=== PATIENT | female | born 1950 | race Two or more races ===

== ENCOUNTER 2020-07-08 11:18 | Emergency (ER) | payer MEDICARE, MEDICAID ==
[~2020-07-08] VITALS: Ht 157.5 cm; Wt 75.0 kg
--- NOTE | 2020-07-08 11:32 | NUR ---
PATIENT BIB [facility] WITH CHIEF COMPLAINT OF DIFFICULTY BREATHING X2 DAYS. PATIENT HAS HAD RESPIRATORY SYMPTOMS FOR 2 WEEKS, INCLUDING PRODUCTIVE COUGH. PATIENT WAS SEEN AT URGENT CARE TODAY WHERE SHE WAS FOUND TO BE 68% ON RA, EN ROUTE [facility] PLACED PATIENT ONF 15 LITERS NON REBREATHER AND PATIENTS O2 SATURATION WENT UP TO 93%. PATIENT IS A&OX4, NO APPARENT SIGNS OF DISTRESS, O2 SATURATION IS 93% ON 15 LITERS NON REBREATHER. ERMD AT BEDSIDE FOR EVALUATION.
--- NOTE | 2020-07-08 12:19 | NUR ---
[employer] LABORER AT BEDSIDE.
[2020-07-08 12:25] LABS: BASOPHILS # (AUTO) 0.01 x10^3/uL (0-0.1); BASOPHILS % (AUTO) 0 % (0-1); EOSINOPHILS % (AUTO) 0 % (1-7); LYMPHOCYTES # (AUTO) 1.05 x10^3/uL (1-3.4); LYMPHOCYTES % (AUTO) 10 % (22-44); MD NO; MEAN CORPUSCULAR HEMOGLOBIN 22.7 pg (27.0-34.8); MEAN CORPUSCULAR HGB CONC 31.4 g/dL (32.4-35.8); MEAN CORPUSCULAR VOLUME 72.2 fL (80-100); MEAN PLATELET VOLUME 8.3 fL (7.4-10.4); MONOCYTES # (AUTO) 0.74 x10^3/uL (0.2-0.8); MONOCYTES % (AUTO) 7 % (2-9); NEUTROPHILS # (AUTO) 9.21 x10^3/uL (1.8-6.8); NEUTROPHILS % (AUTO) 84 % (42-75); O2 FLOW 15 L/min; PLATELET COUNT 407 x10^3/uL (130-400); RED CELL DISTRIBUTION WIDTH 17.7 % (9.6-15.2)
--- NOTE | 2020-07-08 12:28 | NUR ---
PATIENT SLEEPING IN GURNEY, CONNECTED TO GEOTHERMAL SHEET METAL WORKER, CALL LIGHT WITHIN REACH, SIDE RAILS UPX2.
[2020-07-08 12:38] LABS: ALANINE AMINOTRANSFERASE 18 U/L (12-78); ALBUMIN 2.7 g/dL (3.4-5.0); ANION GAP 9 mmol/L (5-15); CALCIUM 8.4 mg/dL (8.5-10.1); CHLORIDE 103 mmol/L (98-107)
[2020-07-08 12:44] LABS: ALKALINE PHOSPHATASE 129 U/L (45-117); BILIRUBIN,TOTAL 0.4 mg/dL (0.2-1.0); TOTAL PROTEIN 7.6 g/dL (6.4-8.2)
--- NOTE | 2020-07-08 13:12 | NUR ---
ERMD AT BEDSIDE UPDATING PATIENT ON POC.
--- NOTE | 2020-07-08 13:21 | NUR ---
SLIME UPDATING FAMILY ON POC.
[2020-07-08 13:32] VITALS: BP 127/100
--- NOTE | 2020-07-08 13:33 | NUR ---
PATIENT SITTING UP IN BED, CONNECTED TO DIRECTOR OF MANAGED CARE, NO APPARENT SIGNS OF DISTRESS, CALL LIGHT WITHIN REACH, NO FURTHER NEEDS AT THIS TIME.
[2020-07-08] MEDS ORDERED: DEXAMETHASONE 4 MG/ML, 1ML ONE (13:52)
--- NOTE | 2020-07-08 13:55 | NUR ---
ERMD AT BEDSIDE WITH PATIENT AND 2 DAUGHTERS TO DISCUSS POC. PATIENT MEDICATED PER eMAR.
[2020-07-08] MEDS ORDERED: DEXAMETHASONE 4 MG/ML, 1ML IVPush ONE (14:00)
--- NOTE | 2020-07-08 14:07 | NUR ---
PT CONTINUES TO REFUSE TREAMTMENT, EDUCATION PROVIDED. ERMD & ADHESIVE PRIMER AWARE. AMA PAPERWORK SIGNED
== END 2020-07-08 14:22 | disposition left against medical advice (07) ==
LOC: ED 11:47
DX: U07.1 COVID-19 (principal); A41.9 Sepsis, unspecified organism; J18.8 Other pneumonia, unspecified organism; J96.01 Acute respiratory failure with hypoxia; R00.0 Tachycardia, unspecified; I10 Essential (primary) hypertension
CPT/HCPCS: 36415; 36600; 71045; 80053; 82728; 82803; 83605; 83615; 83880; 84145; 85025; 86140; 87040; 87635; 93005; 96374; 99291; 99292; J1100